=== PATIENT | female | born 1985 | race Caucasian/White ===

== ENCOUNTER 2018-01-26 20:43 | Inpatient (IN) | payer BC ==
[~2018-01-26] VITALS: Ht 165.1 cm; Wt 68.3 kg
[~2018-01-26 20:43] MED LIST: PRENATAL TABLE1 EAC3 PO
[2018-01-26 22:37] LABS: HEMOGLOBIN 11.3 G/DL (11.9-15.5); MCH 31.1 PG (29.0-34.0); MCHC 34.2 G/DL (30.0-36.0); MCV 90.9 FL (83-99); PLATELET COUNT 295 K/uL (156-360); RBC DIS.WIDTH-CV 13.3 % (11.8-14.6); RBC DIS.WIDTH-SD 44.5 % (39-53); RED BLOOD COUNT 3.63 M/uL (3.80-5.20); WHITE BLOOD COUNT 5.2 K/uL (4.1-10.2)
[2018-01-26 22:48] LABS: CHLORIDE 104 mEq/L (99-109); POTASSIUM 3.7 mEq/L (3.7-5.4); SODIUM 139 mEq/L (136-147)
[2018-01-26 22:49] LABS: GLUCOSE 107 mg/dL (70-99)
[2018-01-26 22:53] LABS: CREATININE 0.7 mg/dL (0.6-1.3); GFR ESTIMATE (CALCULATED) > 59 mL/min/
[2018-01-26 22:54] LABS: UREA NITROGEN (BUN) 11 mg/dL (9-23)
[2018-01-27 03:04] LABS: BASOPHIL (%) 0.6 % (0-1); EOSINOPHIL (%) 1.9 % (0-5); EOSINOPHIL COUNT 0.1 K/uL (0-0.3); IMMATURE GRANULOCYTE (%) 0.2 % (0.0-0.7); LYMPHOCYTE (%) 45.2 % (15-42); LYMPHOCYTE COUNT 2.3 K/uL (1.0-2.8); MONOCYTE (%) 7.6 % (3-12); MONOCYTE COUNT 0.4 K/uL (0-0.8); NEUTROPHIL (%) 44.5 % (45-76); NEUTROPHIL COUNT 2.3 K/uL (1.8-6.4); PLAT.SUFFICIENCY ADEQUATE
[2018-01-27 04:09] VITALS: BP 117/77
[2018-01-27 08:37] VITALS: BP 155/65
[2018-01-27] MEDS ORDERED: ZOLOFT50 MG PO (15:35)
[2018-01-27] MEDS ORDERED: CAMILA0.35 MG PO (15:35)
[2018-01-27] MEDS ORDERED: PROBIOTIC1 EAC1 PO (15:36)
[2018-01-27] MEDS ORDERED: ONE DAILY1 EAC3 PO (15:36)
[2018-01-27] MEDS ORDERED: ASMANEX HFA13 GM IH (15:36)
[2018-01-27 16:23] VITALS: BP 111/23
[2018-01-27 19:59] VITALS: BP 114/64
[2018-01-28 00:02] VITALS: BP 98/51
[2018-01-28 05:55] LABS: HEMATOCRIT 38.1 % (36.0-46.0); HEMOGLOBIN 12.9 G/DL (11.9-15.5); MCH 31.2 PG (29.0-34.0); MCHC 33.9 G/DL (30.0-36.0); MCV 92.3 FL (83-99); PLATELET COUNT 319 K/uL (156-360); RBC DIS.WIDTH-CV 13.6 % (11.8-14.6); RED BLOOD COUNT 4.13 M/uL (3.80-5.20); WHITE BLOOD COUNT 3.4 K/uL (4.1-10.2)
[2018-01-28 06:23] LABS: CHLORIDE 104 MEQ/L (99-109); CREATININE 0.6 MG/DL (0.6-1.3); GFR ESTIMATE (CALCULATED) > 59 mL/min/; GLUCOSE 104 mg/dL (70-99); SODIUM 139 MEQ/L (136-147); UREA NITROGEN (BUN) 13 mg/dL (9-23)
[2018-01-28 06:30] LABS: POTASSIUM 4.5 MEQ/L (3.7-5.4)
[2018-01-28 07:40] LABS: BASOPHIL (%) 1.2 % (0-1); EOSINOPHIL (%) 3.2 % (0-5); EOSINOPHIL COUNT 0.1 K/uL (0-0.3); IMMATURE GRANULOCYTE (%) 0.3 % (0.0-0.7); LYMPHOCYTE (%) 47.4 % (15-42); LYMPHOCYTE COUNT 1.6 K/uL (1.0-2.8); MONOCYTE (%) 8.5 % (3-12); MONOCYTE COUNT 0.3 K/uL (0-0.8); NEUTROPHIL (%) 39.4 % (45-76); NEUTROPHIL COUNT 1.3 K/uL (1.8-6.4); PLAT.SUFFICIENCY ADEQUATE
[2018-01-28 08:24] VITALS: BP 130/70
[2018-01-28 15:50] VITALS: BP 110/65
[2018-01-29 00:10] VITALS: BP 101/58
[2018-01-29 07:23] VITALS: BP 116/68
[2018-01-29] MEDS ORDERED: AUGMENTIN875 MG PO (10:46)
== END 2018-01-29 12:10 | disposition home or self-care (01) | DRG 194 ==
LOC: EME 20:43 → EDOF 01-27 03:17 → 2EASTP 01-27 03:17 → ENRESERV 01-27 03:20 → 2EASTP 01-27 03:53 → ENPENDDIS 01-29 10:54 → 2EASTP 01-29 12:10
PROVIDERS: Emergency Medicine; Physician Assistant
DX: J18.9 Pneumonia, unspecified organism (principal); Z87.891 Personal history of nicotine dependence; S22.41XA Multiple fractures of ribs, right side, initial encounter for closed fracture; T17.890A Other foreign object in other parts of respiratory tract causing asphyxiation, initial encounter
CPT/HCPCS: 71046; 71275; 80048; 83605; 85025; 87040; 87070; 87077; 87205; 87449; 94799; 99281; 99285; J0456; J0696; J1650; J2405; J7030